=== PATIENT | female | born 1980 | race Caucasian/White ===

== ENCOUNTER 2022-02-26 17:37 | Emergency (ER) | payer OTHER ==
--- NOTE | 2022-02-26 18:01 | ED Physician Documentation ---
History of Present Illness - Stated complaint Stated Complaint: SURGERY COMPLICATIONS - Chief complaint Chief Complaint: General - History obtained from History obtained from: Patient - Additonal information Additional information: 41-year-old woman who is 9 days out from a laparoscopy for uterine polyp removal. It could not be done via hysteroscopy due to tight cervix. She was doing well postop until the last couple of days and increasing low back pain with shaking chills since yesterday but no measured fevers. Review of Systems Constitutional: reports: Chills, Fatigue. denies: Fever Cardiac: denies: Chest pain / pressure, Palpitations Respiratory: denies: Dyspnea, Cough GI: denies: Abdominal Pain : reports: Frequency. denies: Dysuria PD PAST MEDICAL HISTORY - Allergies Allergies/Adverse Reactions: Allergies Allergy/AdvReac Type Severity Reaction Status Date / Time ibuprofen Allergy Anaphylaxis Verified 02/26/22 17:47 PD ED PE NORMAL - Vitals Vital signs reviewed: Yes - General General: Alert and oriented X 3, No acute distress - HEENT HEENT: PERRL, EOMI - Neck Neck: Supple, no meningeal sign, No bony TTP - Cardiac Cardiac: RRR, No murmur - Abdomen Abdomen: Normal bowel sounds, Soft, Other (3 laparoscopic incisions healing well without signs of infection, minimal lower abdominal tenderness) - Derm Derm: Normal color, Warm and dry - Extremities Extremities: No edema, No calf tenderness / cord - Neuro Neuro: Alert and oriented X 3, Normal speech Results - Vitals Vitals: Vital Signs - 24 hr 02/26/22 02/26/22 02/26/22 17:42 17:46 19:46 Temperature 36.0 C L 36.5 C 36.5 C Heart Rate 86 86 84 Respiratory 16 16 16 Rate Blood Pressure 137/56 H 137/56 H 130/60 O2 Saturation 98 98 98 Oxygen O2 Source Room air - Labs Labs: Laboratory Tests 02/26/22 02/26/22 02/26/22 17:58 17:58 18:15 WBC 9.0 RBC 4.02 L Hgb 10.6 L Hct 33.6 L MCV 83.6 MCH 26.4 L MCHC 31.5 L RDW 23.4 H Plt Count 311 MPV 8.8 Neut # (Auto) 6.8 H Lymph # (Auto) 1.2 L [place] # (Auto) 0.9 Eos # (Auto) 0.1 Baso # (Auto) 0.0 Absolute Nucleated RBC 0.00 Nucleated RBC % 0.0 Sodium 135 Potassium 3.1 L Chloride 97 L Carbon Dioxide 28 Anion Gap 10.0 BUN 11 Creatinine 0.7 Estimated GFR (MDRD) 91 Glucose 106 H Calcium 8.4 L Urine Color YELLOW Urine Clarity CLEAR Urine pH 6.0 Ur Specific [place] 1.025 Urine Protein TRACE Urine Glucose (UA) NEGATIVE Urine Ketones TRACE Urine Occult Blood NEGATIVE Urine Nitrite NEGATIVE Urine Bilirubin NEGATIVE Urine Urobilinogen 1 (NORMAL) Ur Leukocyte Esterase NEGATIVE Ur Microscopic Review NOT INDICATED Urine Culture Comments NOT INDICATED Urine HCG, Qual NEGATIVE PD MEDICAL DECISION MAKING - ED course ED course: 41-year-old woman presents 9 days after laparoscopic uterine polyp removal with chills but no fevers and back pain. CT was done with multiple findings. I do not think she has colitis given that she does not have diarrhea. We discussed the fatty liver. The small free fluid and periappendiceal inflammation may be postsurgical. I suspect the ovarian cyst is likely causing the severe low back pain. She declined pain medications for it. She will follow-up with her ruby software developer tomorrow. Departure - Departure Disposition: 01 Home, Self Care Clinical Impression: Pelvic pain in female, Chills, Ovarian cyst, Fatty liver Condition: Good Record reviewed to determine appropriate education?: Yes Instructions: ED Pelvic Pain [facility] Comments: Call your ruby software developer tomorrow to discuss CT findings of small ascites and ovarian cyst. Return for new or worsening symptoms especially if you develop fever defined as temperature of greater than 100.4 Fahrenheit/38 Celsius. Or if pain is intolerable at home.
[2022-02-26 18:04] LABS: BASOPHILS % (AUTO) 0.3 %; EOSINOPHILS # (AUTO) 0.1 10^3/uL (0.0-0.7); EOSINOPHILS % (AUTO) 1.2 %; HCT - HEMATOCRIT 33.6 % (37.0-47.0); HGB - HEMOGLOBIN 10.6 g/dL (12.0-16.0); LYMPHOCYTES # (AUTO) 1.2 10^3/uL (1.5-3.5); LYMPHOCYTES % (AUTO) 12.9 %; MEAN CORPUSCULAR HEMOGLOBIN 26.4 pg (27.0-31.0); MEAN CORPUSCULAR HGB CONC 31.5 g/dL (32.0-36.0); MEAN CORPUSCULAR VOLUME 83.6 fL (81.0-99.0); MEAN PLATELET VOLUME 8.8 fL (7.9-10.8); MONOCYTES # (AUTO) 0.9 10^3/uL (0.0-1.0); NEUTROPHILS # (AUTO) 6.8 10^3/uL (1.5-6.6); NEUTROPHILS % (AUTO) 75.3 %; PLT - PLATELET COUNT 311 10^3/uL (130-450); RED BLOOD COUNT 4.02 10^6/uL (4.20-5.40); RED CELL DISTRIBUTION WIDTH 23.4 % (12.0-15.0)
[2022-02-26] MEDS ORDERED: IOVERSOL 320 100 ML VIAL IVP ONE ×2 (18:11→19:12)
[2022-02-26 18:13] LABS: CALCIUM 8.4 mg/dL (8.5-10.3); CREATININE 0.7 mg/dL (0.4-1.0); POTASSIUM 3.1 mmol/L (3.5-5.0)
[2022-02-26 18:28] LABS: BILIRUBIN,URINE NEGATIVE (NEGATIVE); GLUCOSE, URINE (UA) NEGATIVE (NEGATIVE); KETONES,URINE (UA) TRACE mg/dL (NEGATIVE); LEUKOCYTE ESTERASE, URINE NEGATIVE (NEGATIVE); NITRITE,URINE NEGATIVE (NEGATIVE); OCCULT BLOOD,URINE NEGATIVE (NEGATIVE); PROTEIN,URINE TRACE mg/dL (NEGATIVE); UROBILINOGEN,URINE 1 (NORMAL) E.U./dL (NORMAL)
[2022-02-26 18:30] LABS: CLARITY,URINE CLEAR (CLEAR); HCG UR QUAL NEGATIVE
--- NOTE | 2022-02-26 20:10 | CT Report ---
PROCEDURE: Abdomen/Pelvis W INDICATIONS: IV only, post op back pain, ? infection CONTRAST: IV CONTRAST: Optiray 320 ml: 100 PO CONTRAST: *NO PO CONTRAST TECHNIQUE: After the administration of intravenous contrast, 5 mm thick sections acquired from the diaphragms to the symphysis. 5 mm thick coronal and sagittal reformats were acquired. For radiation dose reducti on, the following was used: automated exposure control, adjustment of mA and/or kV according to sophia ent size. COMPARISON: None. FINDINGS: Image quality: Excellent. ABDOMEN: Lung bases: Lung bases are clear. Heart size is normal. Small hiatal hernia. Solid organs: There is mild hepatic steatosis. Liver and spleen are normal in size and enhancement. Gallbladder is normal. Biliary system is non dilated. Pancreas enhances normally. No adrenal nodu les. Kidneys demonstrate normal size and enhancement, without hydronephrosis. Peritoneum and bowel: Appendix is normal in caliber measuring 6 mm. There is, sagittal stranding ant erior to appendix. There are scattered colonic diverticula. Mild colonic wall thickening is present o hebert the descending and sigmoid colon, suspicious for mild colitis. Bowel loops demonstrate normal and caliber. There is a trace amount of free fluid near the inferior margin of liver and the cul-de-sac . No free air. Nodes and vessels: No retroperitoneal or mesenteric adenopathy by size criteria. Aorta and inferior vena cava are normal in size. Miscellaneous: No ventral hernias. PELVIS: Genitourinary: Uterus is grossly normal. There is a 2 cm cyst in the left ovary. A small amount of f ree fluid is present. Bladder wall thickness is normal. Miscellaneous: No inguinal hernias or adenopathy. Bones: No suspicious bony lesions. No vertebral body compression fractures. IMPRESSION: 1. Mild colonic wall thickening involving these in the sigmoid colon, suspicious for colitis. 2. Appendix is normal in caliber. There is, however, mild stranding anterior to appendix. Acute appen dicitis is unlikely but not entirely excluded. 3. Diverticulosis. 4. A 2 cm cyst in left ovary. 5. A small amount of ascites and inferior margin of liver and in the cul-de-sac. 6. Hepatic steatosis. 7. Small hiatal hernia. Reviewed by: Sirena Meza MD on 02/26/2022 8:09 PM PDT Approved by: Sirena Meza MD on 02/26/2022 8:09 PM PDT Station ID: [id number]
[2022-02-26 20:57] VITALS: BP 112/68
== END 2022-02-26 20:40 | disposition home or self-care (01) ==
LOC: ED 17:37
DX: G89.18 Other acute postprocedural pain (principal); N83.202 Unspecified ovarian cyst, left side; K57.90 Diverticulosis of intestine, part unspecified, without perforation or abscess without bleeding; K44.9 Diaphragmatic hernia without obstruction or gangrene; K76.0 Fatty (change of) liver, not elsewhere classified
CPT/HCPCS: 36415; 74177; 80048; 81003; 81025; 85025; 99284; Q9967; 81001; 87086